=== PATIENT | female | born 1965 | race African-American/Black ===

== ENCOUNTER 2019-11-30 18:27 | Inpatient (IN) | payer MEDICAID, OTHER ==
[~2019-11-30] VITALS: Ht 167.6 cm; Wt 129.2 kg
[2019-11-30] MEDS ORDERED: ONDANSETRON HCL 4MG/2ML INJ IV STA (18:32)
[2019-11-30] MEDS ORDERED: DEXTROSE 50% WATER 50ML SYRINGE IV ONE ×2 (18:39→18:45)
[2019-11-30] MEDS ORDERED: ALLO100T PO (18:42)
[2019-11-30] MEDS ORDERED: HYDR50SY PO (18:42)
[2019-11-30] MEDS ORDERED: LURA20TA PO (18:42)
[2019-11-30] MEDS ORDERED: CARV25TA47 PO (18:42)
[2019-11-30] MEDS ORDERED: DOCU100T PO (18:42)
[2019-11-30] MEDS ORDERED: ALBU90AE IH (18:42)
[2019-11-30] MEDS ORDERED: TRAZ-251 PO (18:42)
[2019-11-30] MEDS ORDERED: TRAV2.5D RIGHTEYE (18:42)
[2019-11-30] MEDS ORDERED: VALTESSA (18:42)
[2019-11-30] MEDS ORDERED: ISOS20TA57 PO (18:42)
[2019-11-30] MEDS ORDERED: PRED5DRO22 OP (18:42)
[2019-11-30 18:50] LABS: BASOPHILS % 0.8 % (0.0-2.0); EOSINOPHILS % 3.5 % (0.0-5.0); HEMATOCRIT. 24.8 % (36.0-48.0); HEMOGLOBIN. 7.9 g/dL (12.0-16.0); LYMPHOCYTES % 18.9 % (20.0-50.0); MEAN CORPUSCULAR HEMOGLOBIN 28.6 pg (28.0-32.0); MEAN CORPUSCULAR VOLUME 89.7 fL (81.0-99.0); MEAN PLATELET VOLUME 7.4 fl (7.4-10.4); NEUTROPHILS % 63.8 % (40.0-76.0); PLATELET 175 x1000/uL (130-400); RED BLOOD CELL COUNT 2.77 mill/uL (4.2-5.4); RED CELL DISTRIBUTION WIDTH 16.4 % (11.6-14.6)
[2019-11-30 18:54] LABS: CHLORIDE 104 mEq/L (98-107)
[2019-11-30 18:58] LABS: ETHANOL BLOOD < 10 mg/dL
[2019-11-30 19:08] LABS: CLARITY URINE TURBID (CLEAR); COLOR URINE YELLOW (YELLOW); KETONES URINE TRACE (NEGATIVE); LEUKOCYTE ESTERASE URINE 1+ (NEGATIVE); NITRITE URINE NEGATIVE (NEGATIVE); OCCULT BLOOD URINE 1+ (NEGATIVE); PROTEIN URINE 4+ (NEGATIVE); SPECIFIC GRAVITY URINE 1.022 (1.005-1.030)
[2019-11-30 19:17] LABS: *AMPHETAMINES SCREEN URINE NEGATIVE (NEGATIVE); *BARBITURATES SCREEN URINE NEGATIVE (NEGATIVE)
[2019-11-30 19:18] LABS: *BENZODIAZEPINES SCREEN URINE NEGATIVE (NEGATIVE); *COCAINE SCREEN URINE NEGATIVE (NEGATIVE); METHADONE URINE SCREEN NEGATIVE (NEGATIVE); OPIATES URINE SCREEN NEGATIVE (NEGATIVE); PHENCYCLIDINE URINE SCREEN NEGATIVE (NEGATIVE)
[2019-11-30 19:19] LABS: CANNABINOID URINE SCREEN NEGATIVE (NEGATIVE)
[2019-11-30] MEDS ORDERED: DEXT 5%/0.9% NACL 1,000 ML IV ONE (20:00)
[2019-11-30] MEDS ORDERED: LEVETIRACETAM 1000MG/100ML 100 ML IV ONE (20:45)
[2019-11-30] MEDS ORDERED: ACETAMINOPHEN 325MG TABLET PO PRN ×2 (21:00)
[2019-11-30] MEDS ORDERED: ONDANSETRON HCL 4MG/2ML INJ IV PRN (21:00)
[2019-11-30] MEDS ORDERED: CLONIDINE 0.1MG TABLET PO PRN (21:00)
[2019-11-30] MEDS ORDERED: LEVETIRACETAM 500 MG in SODIUM CHLORIDE 0.9% 100 ML IV SCH (21:00)
[2019-11-30] MEDS: BLOOD SUGAR DIAGNOSTIC STRIP TEST SCH (21:32)
[2019-11-30] MEDS ORDERED: LEVETIRACETAM 1000MG/100ML 100 ML IV NR (21:45)
[2019-11-30] MEDS: DEXT 10% WATER 1,000 ML IV SCH (22:41)
[2019-11-30] MEDS: LORAZEPAM 2MG/ML CPJ IV PRN (22:53)
[2019-11-30] MEDS: DIPHENHYDRAMINE 50MG/ML VIAL IV PRN (23:57)
[2019-12-01] VITALS (14 sets, daily range): BP systolic 107–182; BP diastolic 42–88
[2019-12-01] MEDS ORDERED: CLON0.3T PO (02:49)
[2019-12-01] MEDS ORDERED: FURO80TA87 PO (02:49)
[2019-12-01] MEDS ORDERED: HYDR50TA55 PO (02:57)
[2019-12-01] MEDS: LORAZEPAM 2MG/ML CPJ IV PRN (06:15)
[2019-12-01] MEDS: DIPHENHYDRAMINE 50MG/ML VIAL IV PRN (06:23)
[2019-12-01] MEDS: BLOOD SUGAR DIAGNOSTIC STRIP TEST SCH ×4 (06:27→21:00)
[2019-12-01 06:56] LABS: BASOPHILS % 1.1 % (0.0-2.0); EOSINOPHILS % 2.3 % (0.0-5.0); HEMOGLOBIN. 8.1 g/dL (12.0-16.0); LYMPHOCYTES % 18.8 % (20.0-50.0); MEAN PLATELET VOLUME 7.5 fl (7.4-10.4); MONOCYTES % 11.3 % (2.0-8.0); NEUTROPHILS % 66.5 % (40.0-76.0); PLATELET 183 x1000/uL (130-400); RED BLOOD CELL COUNT 2.78 mill/uL (4.2-5.4); RED CELL DISTRIBUTION WIDTH 16.4 % (11.6-14.6)
[2019-12-01] MEDS: LEVETIRACETAM 500MG PREMIX 100 ML IV SCH ×2 (08:47→22:45)
[2019-12-01] MEDS ORDERED: LEVETIRACETAM 500MG PREMIX 100 ML IV SCH (09:00)
[2019-12-01] MEDS: DEXTROSE 50% WATER 50ML SYRINGE IV PRN ×2 (11:33→12:08)
[2019-12-01] MEDS ORDERED: DEXTROSE 50% WATER 50ML SYRINGE IV ONE (11:43)
[2019-12-01] MEDS ORDERED: DEXTROSE 50% WATER 50ML SYRINGE IV NR (11:45)
[2019-12-01 15:34] LABS: HEPATITIS B SURFACE AB < 3.1 mIU/mL
[2019-12-01 15:44] LABS: HEPATITIS B SURFACE ANTIGEN NEGATIVE
[2019-12-01] MEDS: DEXT 10% WATER 1,000 ML IV SCH ×2 (16:16→22:45)
[2019-12-01] MEDS: EPOETIN ALFA 4000UNITS/ML VIAL SUBCUT SCH (22:46)
[2019-12-02] VITALS (12 sets, daily range): BP systolic 90–161; BP diastolic 45–90
[2019-12-02] MEDS: DEXT 10% WATER 1,000 ML IV SCH ×3 (05:18→23:59)
[2019-12-02 06:40] LABS: PHOSPHORUS 3.5 mg/dL (2.5-4.9)
[2019-12-02 06:49] LABS: BASOPHILS % 0.7 % (0.0-2.0); EOSINOPHILS % 4.6 % (0.0-5.0); HEMATOCRIT. 23.1 % (36.0-48.0); HEMOGLOBIN. 7.4 g/dL (12.0-16.0); LYMPHOCYTES % 20.9 % (20.0-50.0); MEAN CORPUSCULAR VOLUME 90.3 fL (81.0-99.0); MEAN PLATELET VOLUME 7.2 fl (7.4-10.4); MONOCYTES % 13.4 % (2.0-8.0); NEUTROPHILS % 60.4 % (40.0-76.0); PLATELET 158 x1000/uL (130-400); RED BLOOD CELL COUNT 2.56 mill/uL (4.2-5.4); RED CELL DISTRIBUTION WIDTH 16.3 % (11.6-14.6)
[2019-12-02] MEDS: BLOOD SUGAR DIAGNOSTIC STRIP TEST SCH ×4 (07:27→20:32)
[2019-12-02] MEDS: LEVETIRACETAM 500MG PREMIX 100 ML IV SCH ×2 (09:52→20:32)
[2019-12-02] MEDS ORDERED: LIDOCAINE HCL 1% 20ML VIAL (Pyxis) INJ ONE (10:23)
[2019-12-02] MEDS: FERROUS SULFATE 325MG TABLET PO SCH ×2 (12:39→17:20)
[2019-12-02] MEDS: METOCLOPRAMIDE HCL 10MG/2ML VIAL IV SCH ×2 (15:01→21:58)
[2019-12-02] MEDS ORDERED: BISACODYL 10MG SUPP PR NR (18:00)
[2019-12-03] VITALS (11 sets, daily range): BP systolic 110–158; BP diastolic 50–94
[2019-12-03] MEDS: METOCLOPRAMIDE HCL 10MG/2ML VIAL IV SCH ×3 (05:57→21:34)
[2019-12-03] MEDS: BLOOD SUGAR DIAGNOSTIC STRIP TEST SCH ×4 (06:08→21:32)
[2019-12-03 07:37] LABS: BASOPHILS % 0.4 % (0.0-2.0); EOSINOPHILS % 2.6 % (0.0-5.0); HEMATOCRIT. 22.4 % (36.0-48.0); HEMOGLOBIN. 7.3 g/dL (12.0-16.0); LYMPHOCYTES % 13.4 % (20.0-50.0); MEAN CORPUSCULAR HEMOGLOBIN 29.4 pg (28.0-32.0); MEAN PLATELET VOLUME 7.4 fl (7.4-10.4); NEUTROPHILS % 70.6 % (40.0-76.0); PLATELET 157 x1000/uL (130-400); RED BLOOD CELL COUNT 2.49 mill/uL (4.2-5.4); RED CELL DISTRIBUTION WIDTH 15.4 % (11.6-14.6)
[2019-12-03] MEDS: FERROUS SULFATE 325MG TABLET PO SCH ×3 (08:18→17:35)
[2019-12-03] MEDS: LEVETIRACETAM 500MG PREMIX 100 ML IV SCH ×2 (08:18→21:34)
[2019-12-03] MEDS: DEXT 10% WATER 1,000 ML IV SCH (10:45)
[2019-12-03] MEDS: EPOETIN ALFA 4000UNITS/ML VIAL SUBCUT SCH (21:41)
[2019-12-04] VITALS (14 sets, daily range): BP systolic 108–172; BP diastolic 55–75
[2019-12-04] MEDS: DEXT 10% WATER 1,000 ML IV SCH (04:31)
[2019-12-04] MEDS: METOCLOPRAMIDE HCL 10MG/2ML VIAL IV SCH ×3 (06:42→22:12)
[2019-12-04] MEDS: BLOOD SUGAR DIAGNOSTIC STRIP TEST SCH ×4 (06:50→19:48)
[2019-12-04] MEDS: FERROUS SULFATE 325MG TABLET PO SCH ×3 (08:21→18:41)
[2019-12-04] MEDS: LEVETIRACETAM 500MG PREMIX 100 ML IV SCH ×2 (09:27→22:11)
[2019-12-04 12:34] LABS: BASOPHILS % 0.5 % (0.0-2.0); EOSINOPHILS % 4.5 % (0.0-5.0); MEAN CORPUSCULAR HEMOGLOBIN 28.9 pg (28.0-32.0); MEAN CORPUSCULAR VOLUME 88.9 fL (81.0-99.0); MEAN PLATELET VOLUME 7.4 fl (7.4-10.4); MONOCYTES % 13.4 % (2.0-8.0); NEUTROPHILS % 67.6 % (40.0-76.0); PLATELET 163 x1000/uL (130-400); RED BLOOD CELL COUNT 2.42 mill/uL (4.2-5.4); RED CELL DISTRIBUTION WIDTH 15.9 % (11.6-14.6)
[2019-12-04 12:39] LABS: HEMATOCRIT. 21.5 % (36.0-48.0); PARTIAL THROMBOPLASTIN TIME 30.5 sec (23.4-31.0); PROTHROMBIN TIME 10.1 sec (9.6-11.0)
[2019-12-04 17:50] LABS: HEMATOCRIT 24.9 % (36.0-48.0); HEMOGLOBIN 8.3 g/dL (12.0-16.0)
[2019-12-04 18:08] LABS: INR 0.9
[2019-12-05] VITALS (9 sets, daily range): BP systolic 128–155; BP diastolic 54–89
[2019-12-05] MEDS: METOCLOPRAMIDE HCL 10MG/2ML VIAL IV SCH (05:24)
[2019-12-05] MEDS: BLOOD SUGAR DIAGNOSTIC STRIP TEST SCH ×2 (06:13→11:14)
[2019-12-05 06:32] LABS: HEMATOCRIT. 23.7 % (36.0-48.0); MEAN CORPUSCULAR HEMOGLOBIN 29.8 pg (28.0-32.0); MEAN CORPUSCULAR VOLUME 88.1 fL (81.0-99.0); MEAN PLATELET VOLUME 6.7 fl (7.4-10.4); PLATELET 143 x1000/uL (130-400); RED BLOOD CELL COUNT 2.69 mill/uL (4.2-5.4); RED CELL DISTRIBUTION WIDTH 15.1 % (11.6-14.6)
[2019-12-05] MEDS: FERROUS SULFATE 325MG TABLET PO SCH ×2 (07:20→12:20)
[2019-12-05] MEDS: LEVETIRACETAM 500MG PREMIX 100 ML IV SCH (09:00)
[2019-12-05] MEDS ORDERED: FOLIC ACID/VITAMIN B COMP W-C TABLET PO SCH (09:00)
[2019-12-05 16:24] LABS: PLATELET ESTIMATE NORMAL
== END 2019-12-05 17:42 | disposition home or self-care (01) | DRG 638 ==
LOC: ER 18:27 → 3WST 20:39 → ENRESERV 21:20
PROVIDERS: ADMIT Internal Medicine; ATTEND Internal Medicine
PROC: 5A1D70Z Performance of Urinary Filtration, Intermittent, Less than 6 Hours Per Day (ICD-10-PCS; 2019-12-01)
PROC: B5181ZA Fluoroscopy of Superior Vena Cava using Low Osmolar Contrast, Guidance (ICD-10-PCS; 2019-12-02)
PROC: 02HV33Z Insertion of Infusion Device into Superior Vena Cava, Percutaneous Approach (ICD-10-PCS; 2019-12-02)
PROC: B548ZZA Ultrasonography of Superior Vena Cava, Guidance (ICD-10-PCS; 2019-12-02)
PROC: 5A1D70Z Performance of Urinary Filtration, Intermittent, Less than 6 Hours Per Day (ICD-10-PCS; 2019-12-03)
PROC: 30233N1 Transfusion of Nonautologous Red Blood Cells into Peripheral Vein, Percutaneous Approach (ICD-10-PCS; principal; 2019-12-04)
PROC: 5A1D70Z Performance of Urinary Filtration, Intermittent, Less than 6 Hours Per Day (ICD-10-PCS; 2019-12-04)
PROC: 02HV33Z Insertion of Infusion Device into Superior Vena Cava, Percutaneous Approach (ICD-10-PCS; 2019-12-04)
PROC: B548ZZA Ultrasonography of Superior Vena Cava, Guidance (ICD-10-PCS; 2019-12-04)
PROC: 5A1D70Z Performance of Urinary Filtration, Intermittent, Less than 6 Hours Per Day (ICD-10-PCS; 2019-12-05)
DX: E11.649 Type 2 diabetes mellitus with hypoglycemia without coma (principal); I12.0 Hypertensive chronic kidney disease with stage 5 chronic kidney disease or end stage renal disease; Z68.42 Body mass index [BMI] 45.0-49.9, adult; N18.6 End stage renal disease; F41.9 Anxiety disorder, unspecified; D64.9 Anemia, unspecified; E78.5 Hyperlipidemia, unspecified; G40.89 Other seizures; E11.22 Type 2 diabetes mellitus with diabetic chronic kidney disease; E66.01 Morbid (severe) obesity due to excess calories; F32.9 Major depressive disorder, single episode, unspecified; J45.909 Unspecified asthma, uncomplicated; Z99.2 Dependence on renal dialysis; Z79.4 Long term (current) use of insulin; Z03.818 Encounter for observation for suspected exposure to other biological agents ruled out
CPT/HCPCS: 36415; 36573; 71045; 76937; 80048; 80053; 80305; 80320; 81003; 82728; 82947; 82962; 83036; 83540; 83550; 84100; 84484; 85014; 85018; 85025; 85049; 85384; 86705; 86706; 86803; 86850; 86900; 86920; 87340; 93005; 96365; 99285; C1725; C1752; J0885; J1200; J1953; J2060; J2405; J2765; J3490; J7042; P9016; G0480; U0003-CS

== ENCOUNTER 2021-02-21 17:21 | Emergency (ER) | payer MEDICARE, MEDICAID ==
[~2021-02-21] VITALS: Ht 165.1 cm; Wt 117.0 kg
[~2021-02-21 17:21] MED LIST: ALBU90AE IH; ALLO100T PO; CARV25TA47 PO; CLON0.3T PO; DOCU100T PO; FURO80TA87 PO; HYDR50TA55 PO; ISOS20TA57 PO; LURA20TA PO; PRED5DRO22 OP; TRAV2.5D9 RIGHTEYE; TRAZ-251 PO; VALTESSA
[2021-02-21 18:37] LABS: BASOPHILS % 0.4 % (0.0-2.0); EOSINOPHILS % 1.3 % (0.0-5.0); HEMATOCRIT. 33.3 % (36.0-48.0); HEMOGLOBIN. 10.9 g/dL (12.0-16.0); LYMPHOCYTES % 15.9 % (20.0-50.0); MEAN CORPUSCULAR HEMOGLOBIN 29.9 pg (28.0-32.0); MEAN PLATELET VOLUME 8.8 fl (7.4-10.4); MONOCYTES % 6.3 % (2.0-8.0); NEUTROPHILS % 76.1 % (40.0-76.0); PLATELET 124 x1000/uL (130-400); RED BLOOD CELL COUNT 3.66 mill/uL (4.2-5.4); RED CELL DISTRIBUTION WIDTH 15.1 % (11.6-14.6)
[2021-02-21 18:44] LABS: CHLORIDE 98 mEq/L (98-107)
[2021-02-21 19:29] LABS: PROTHROMBIN TIME 10.9 sec (9.6-11.0)
[2021-02-21 20:16] VITALS: BP 168/84
== END 2021-02-21 20:47 | disposition home or self-care (01) ==
LOC: ER2 17:21
DX: T82.838A Hemorrhage due to vascular prosthetic devices, implants and grafts, initial encounter (principal); E11.22 Type 2 diabetes mellitus with diabetic chronic kidney disease; N18.6 End stage renal disease; F41.9 Anxiety disorder, unspecified; F32.9 Major depressive disorder, single episode, unspecified; E78.00 Pure hypercholesterolemia, unspecified; H40.9 Unspecified glaucoma; J45.909 Unspecified asthma, uncomplicated; Z99.2 Dependence on renal dialysis; Z98.890 Other specified postprocedural states; Y84.1 Kidney dialysis as the cause of abnormal reaction of the patient, or of later complication, without mention of misadventure at the time of the procedure; Y92.018 Other place in single-family (private) house as the place of occurrence of the external cause
CPT/HCPCS: 36415; 80053; 85025; 86850; 86900; 99291

== ENCOUNTER 2021-06-17 16:44 | Emergency (ER) | payer MEDICARE, MEDICAID ==
[~2021-06-17] VITALS: Ht 160 cm; Wt 91.0 kg
[2021-06-17] MEDS ORDERED: CLONIDINE 0.2MG TABLET PO ONE (18:15)
[2021-06-17] MEDS ORDERED: CLONIDINE 0.2MG TABLET PO NR (20:30)
[2021-06-17 21:53] LABS: BASOPHILS % 0.5 % (0.0-2.0); EOSINOPHILS % 0.7 % (0.0-5.0); HEMATOCRIT. 38.4 % (36.0-48.0); HEMOGLOBIN. 12.5 g/dL (12.0-16.0); LYMPHOCYTES % 17.7 % (20.0-50.0); MEAN CORPUSCULAR HEMOGLOBIN 28.9 pg (28.0-32.0); MEAN CORPUSCULAR VOLUME 88.8 fL (81.0-99.0); MEAN PLATELET VOLUME 7.6 fl (7.4-10.4); MONOCYTES % 9.3 % (2.0-8.0); NEUTROPHILS % 71.8 % (40.0-76.0); PLATELET 112 x1000/uL (130-400); RED BLOOD CELL COUNT 4.32 mill/uL (4.2-5.4); RED CELL DISTRIBUTION WIDTH 16.6 % (11.6-14.6)
[2021-06-17 21:59] LABS: CHLORIDE 98 mEq/L (98-107)
[2021-06-17] MEDS ORDERED: HYDROCODONE/ACETAMINOPHEN 5/325MG TABLET PO ONE (23:45)
[2021-06-18 02:20] VITALS: BP 143/61
== END 2021-06-18 02:30 | disposition home or self-care (01) ==
LOC: ER 16:44
DX: R51.9 Headache, unspecified (principal); I12.0 Hypertensive chronic kidney disease with stage 5 chronic kidney disease or end stage renal disease; N18.6 End stage renal disease; Z99.2 Dependence on renal dialysis
CPT/HCPCS: 36415; 80053; 85025; 99284